=== PATIENT | male | born 1955 | race Caucasian/White ===

== ENCOUNTER 2016-08-26 06:56 | Inpatient (IN) | payer BC ==
[~2016-08-26] VITALS: Ht 172.7 cm; Wt 113.4 kg
[~2016-08-26 06:56] MED LIST: ALBU17IN INH; FAMO40TA3 PO; LISI20TA PO; SPIR25TA2 PO
[2016-08-26] MEDS ORDERED: LR 1,000 ML IV SCH ×3 (07:15→13:45)
[2016-08-26] MEDS ORDERED: AMPICILLIN SOD/SULBACTAM SOD 3 GM in D5W MINI-BAG PLUS 100 ML IV ONE (07:15)
[2016-08-26] MEDS ORDERED: MIDAZOLAM INJ 2 MG/2 ML VIAL (J2250) As Ordered ONE (07:57)
[2016-08-26] MEDS ORDERED: LIDOCAINE 2% INJ 100 MG/5 ML SDV (FOR ANES.) As Ordered ONE (07:58)
[2016-08-26] MEDS ORDERED: fentaNYL 250 MCG/5 ML INJECTION (J3010) As Ordered ONE (07:58)
[2016-08-26] MEDS ORDERED: PROPOFOL 200 MG/20 ML VIAL As Ordered ONE (08:00)
[2016-08-26] MEDS ORDERED: ROCURONIUM BROMIDE 50 MG/5 ML VIAL As Ordered ONE (08:01)
[2016-08-26] MEDS ORDERED: CONRAY-60 60% 50ML VIAL (Q9961) As Ordered ONE (08:22)
[2016-08-26] MEDS ORDERED: BUPIVACAINE HCL 0.25% 30 ML VIAL As Ordered ONE (08:23)
[2016-08-26] MEDS ORDERED: LIDOCAINE 1% SDV INJ 30 ML VIAL As Ordered ONE (08:23)
[2016-08-26] MEDS ORDERED: dexameTHASONE 4 MG/ML 1ML VIAL (J1100) As Ordered ONE (08:58)
[2016-08-26] MEDS ORDERED: ONDANSETRON 4MG/2ML VIAL (J2405) As Ordered ONE (09:22)
[2016-08-26] MEDS ORDERED: NEOSTIGMINE 1MG/ML 5 ML SYRINGE (J2710) As Ordered ONE (09:22)
[2016-08-26] MEDS ORDERED: GLYCOPYRROLATE INJ 0.2 MG/ML 2 ML VIAL As Ordered ONE (09:22)
[2016-08-26] MEDS ORDERED: HYDROmorphone HCL 2 MG/ML 1ML VIAL (J1170) As Ordered ONE (10:39)
[2016-08-26] MEDS ORDERED: ceFAZolin 2 GM/D5W 50 ML IV BAG (J0690) As Ordered ONE (12:14)
[2016-08-26] MEDS ORDERED: UNASYN 1.5 GM VIAL As Ordered ONE (12:17)
[2016-08-26] MEDS ORDERED: ePHEDrine SULFATE 25 MG/5 ML(5MG/ML) SYRINGE As Ordered ONE (12:18)
[2016-08-26] MEDS ORDERED: ALBUTEROL 90 MCG/ACT 8GM HFA INHALER INH PRN (13:00)
[2016-08-26] MEDS ORDERED: ONDANSETRON 4MG/2ML VIAL (J2405) IV PRN ×2 (13:00→13:45)
[2016-08-26] MEDS ORDERED: ACETAMINOPHEN TAB 650MG DOSE (2X325MG) PO PRN (13:00)
[2016-08-26] MEDS ORDERED: KETOROLAC 30 MG/ML VIAL (J1885) IV PRN (13:00)
[2016-08-26] MEDS ORDERED: MORPHINE 4 MG/ML 1ML SYRINGE IV PRN (13:00)
[2016-08-26] MEDS ORDERED: fentaNYL 100 MCG/2 ML INJECTION (J3010) As Ordered ONE (13:27)
[2016-08-26] MEDS: fentaNYL 100 MCG/2 ML INJECTION (J3010) IV PRN ×4 (13:30→14:01)
[2016-08-26] MEDS ORDERED: HYDROmorphone HCL 1 MG/ML SYRINGE (J1170) As Ordered ONE (14:03)
[2016-08-26] MEDS ORDERED: HYDROmorphone HCL 1 MG/ML SYRINGE (J1170) IV PRN (14:30)
[2016-08-26 14:41] VITALS: BP 112/54
[2016-08-26 15:15] VITALS: BP 112/58
[2016-08-26] MEDS: NORCO, ANEXSIA 5/325MG TABLET (HYDROcodone/ACETAMINOPHEN) PO PRN ×2 (15:49→21:24)
[2016-08-26 16:15] VITALS: BP 114/58
[2016-08-26] MEDS: PANTOPRAZOLE 40MG INJ (PROTONIX) (C9113) IV SCH (16:31)
[2016-08-26] MEDS: ENOXAPARIN 40 MG/0.4 ML SYRINGE (J1650) SC SCH (16:32)
[2016-08-26] MEDS: LISINOPRIL 20 MG TAB PO SCH (16:32)
[2016-08-26] MEDS: hydroCHLOROthiazide 12.5 MG CAPSULE PO SCH (16:32)
[2016-08-26] MEDS: LR 1,000 ML IV SCH ×2 (16:33→21:23)
[2016-08-26] MEDS ORDERED: NORCO, ANEXSIA 5/325MG TABLET (HYDROcodone/ACETAMINOPHEN) PO PRN (16:45)
[2016-08-26 17:15] VITALS: BP 118/57
[2016-08-26] MEDS: AMPICILLIN SOD/SULBACTAM SOD 3 GM in D5W MINI-BAG PLUS 100 ML IV SCH (17:41)
[2016-08-26 18:15] VITALS: BP 116/61
[2016-08-26] MEDS: SENOKOT S TAB PO SCH (21:23)
[2016-08-26 22:00] VITALS: BP 105/54
[2016-08-27] MEDS: AMPICILLIN SOD/SULBACTAM SOD 3 GM in D5W MINI-BAG PLUS 100 ML IV SCH ×3 (00:16→12:19)
[2016-08-27 02:00] VITALS: BP 112/63
[2016-08-27] MEDS: LR 1,000 ML IV SCH (05:19)
[2016-08-27] MEDS: NORCO, ANEXSIA 5/325MG TABLET (HYDROcodone/ACETAMINOPHEN) PO PRN ×3 (05:42→18:33)
[2016-08-27 06:00] VITALS: BP 102/52
[2016-08-27 06:57] LABS: BASO % 0.2 % (0.0-1.0); EOS % 0.1 % (0.0-3.0); LARGE UNSTAINED CELL # 0.1 K/mm3 (0.0-0.4); LARGE UNSTAINED CELL % 0.8 % (0.0-4.0); LYMPH # 0.8 K/mm3 (1.5-4.5); LYMPH % 10.1 % (24.0-44.0); MEAN CORPUSCULAR HEMOGLOBIN 28.8 pg (27.0-33.0); MEAN CORPUSCULAR HGB CONC 32.8 g/dl (32.0-36.5); MEAN CORPUSCULAR VOLUME 87.9 fl (80.0-96.0); MONO # 0.3 K/mm3 (0.0-0.8); NEUTROPHILS # 6.3 K/mm3 (1.8-7.7); NEUTROPHILS % 84.9 % (36.0-66.0); PLATELET COUNT, AUTOMATED 159 k/mm3 (150-450); RED CELL DISTRIBUTION WIDTH 12.9 % (11.5-14.5); WHITE BLOOD COUNT 7.4 K/mm3 (4.0-10.0)
[2016-08-27 07:13] LABS: ALBUMIN 2.3 GM/DL (3.2-5.2); ALKALINE PHOSPHATASE 52 U/L (45-117); ALT/SGPT 51 U/L (12-78); ANION GAP 7 MEQ/L (8-16); AST/SGOT 39 U/L (15-37); BLOOD UREA NITROGEN 17 MG/DL (7-18); CALCIUM LEVEL 8.4 MG/DL (8.8-10.2); CARBON DIOXIDE LEVEL 30 MEQ/L (21-32); CHLORIDE LEVEL 104 MEQ/L (98-107); CREATININE FOR GFR 1.17 MG/DL (0.70-1.30); GLOMERULAR FILTRATION RATE > 60.0 (>49); GLUCOSE, FASTING 126 MG/DL (80-110); SODIUM LEVEL 141 MEQ/L (136-145); TOTAL PROTEIN 5.6 GM/DL (6.4-8.2)
[2016-08-27] MEDS: SENOKOT S TAB PO SCH ×2 (09:47→21:38)
[2016-08-27] MEDS: hydroCHLOROthiazide 12.5 MG CAPSULE PO SCH (09:48)
[2016-08-27] MEDS: ENOXAPARIN 40 MG/0.4 ML SYRINGE (J1650) SC SCH (09:48)
[2016-08-27] MEDS: LISINOPRIL 20 MG TAB PO SCH (09:48)
[2016-08-27] MEDS: PANTOPRAZOLE 40MG INJ (PROTONIX) (C9113) IV SCH (09:49)
[2016-08-27 22:00] VITALS: BP 106/55
[2016-08-28] MEDS: NORCO, ANEXSIA 5/325MG TABLET (HYDROcodone/ACETAMINOPHEN) PO PRN ×4 (00:54→21:55)
[2016-08-28 06:00] VITALS: BP 120/70
[2016-08-28 07:12] LABS: BASO % 0.3 % (0.0-1.0); EOS # 0.1 K/mm3 (0.0-0.50); LARGE UNSTAINED CELL # 0.1 K/mm3 (0.0-0.4); LARGE UNSTAINED CELL % 0.9 % (0.0-4.0); LYMPH # 0.8 K/mm3 (1.5-4.5); LYMPH % 13.4 % (24.0-44.0); MEAN CORPUSCULAR HEMOGLOBIN 29.3 pg (27.0-33.0); MEAN CORPUSCULAR HGB CONC 32.9 g/dl (32.0-36.5); MEAN CORPUSCULAR VOLUME 89.1 fl (80.0-96.0); MONO # 0.3 K/mm3 (0.0-0.8); NEUTROPHILS # 4.5 K/mm3 (1.8-7.7); NEUTROPHILS % 79.3 % (36.0-66.0); PLATELET COUNT, AUTOMATED 159 k/mm3 (150-450); RED CELL DISTRIBUTION WIDTH 13.2 % (11.5-14.5); WHITE BLOOD COUNT 5.6 K/mm3 (4.0-10.0)
[2016-08-28 07:21] LABS: ALBUMIN 2.4 GM/DL (3.2-5.2); ALBUMIN/GLOBULIN RATIO 0.69 (1.00-1.93); ALKALINE PHOSPHATASE 55 U/L (45-117); ALT/SGPT 38 U/L (12-78); ANION GAP 5 MEQ/L (8-16); AST/SGOT 20 U/L (15-37); BILIRUBIN,TOTAL 0.9 MG/DL (0.2-1.0); BLOOD UREA NITROGEN 15 MG/DL (7-18); CALCIUM LEVEL 8.4 MG/DL (8.8-10.2); CARBON DIOXIDE LEVEL 31 MEQ/L (21-32); CHLORIDE LEVEL 105 MEQ/L (98-107); CREATININE FOR GFR 1.02 MG/DL (0.70-1.30); GLOMERULAR FILTRATION RATE > 60.0 (>49); GLUCOSE, FASTING 101 MG/DL (80-110); POTASSIUM SERUM 3.5 MEQ/L (3.5-5.1); SODIUM LEVEL 141 MEQ/L (136-145); TOTAL PROTEIN 5.9 GM/DL (6.4-8.2)
[2016-08-28] MEDS: hydroCHLOROthiazide 12.5 MG CAPSULE PO SCH (08:59)
[2016-08-28] MEDS: PANTOPRAZOLE 40MG TAB (PROTONIX) PO SCH (08:59)
[2016-08-28] MEDS: LISINOPRIL 20 MG TAB PO SCH (08:59)
[2016-08-28] MEDS: SENOKOT S TAB PO SCH ×2 (08:59→20:09)
[2016-08-28] MEDS: ENOXAPARIN 40 MG/0.4 ML SYRINGE (J1650) SC SCH (09:00)
--- NOTE | 2016-08-28 13:12 | RO ---
DATE OF PROCEDURE: 08/26/2016 PREOPERATIVE DIAGNOSIS: 1. History of acute cholecystitis. 2. Cholelithiasis. POSTOPERATIVE DIAGNOSIS: 1. Chronic cholecystitis. 2. Cholecystoduodenal fistula. 3. Small injury to common hepatic duct at the junction with the cystic duct with primary repair. PROCEDURE PERFORMED: 1. Laparoscopic cholecystectomy converted to open cholecystectomy. 2. Takedown of cholecystoduodenal fistula with repair of the duodenal opening. 3. Small injury to the common hepatic duct with primary suture repair. SURGEON: Ramírez Leslie MD ASSISTANTS: 1. Dr. Ledbetter 2. Dr. Lundberg 3. Nubia Bermudez, MS-III ANESTHESIA: General anesthesia. ESTIMATED BLOOD LOSS: 100 mL. COMPLICATIONS: A small leak noted at the junction of the cystic duct and common hepatic duct which was repaired with #3-0 PDS suture. DRAINS PLACED: 19 Jalen drain placed behind the common bile duct coming off onto the patient's right side and another 19 Jalen drain coming around behind the duodenal sweep coming off the patient's umbilical port site. PROCEDURE NOTE: Mr. Coley is 61-year-old gentleman who back in July while in [place] for vacation had apparently a bout of acute cholecystitis, was kept overnight in the hospital and improved and was subsequently sent home. I saw him in the clinic and was advised cholecystectomy. He presents today for said procedure. He has been relatively asymptomatic since that time. After receiving Unasyn as a preoperative antibiotic the patient was brought to the operating room and laid supine on the table. Compression boots were placed on his lower extremities for deep vein thrombosis (DVT) prophylaxis. General endotracheal anesthesia was started without any complication. The abdomen was prepped and draped in usual sterile fashion. After a surgical time out we began our surgery. Entry into the abdomen done with an incision superior to the umbilicus. This was deepened to the anterior fascia. A Veress needle inserted in a controlled fashion. CO2 insufflation started to a pressure of 15 mmHg. Using the same incision a 5 mm Visiport was placed under direct vision of the laparoscope. The insertion site was checked for injury and none was found. He was then placed in a reverse Trendelenburg position and the right side tilted up to further expose the gallbladder. Under direct vision, the other working ports were placed, an 11 mm epigastric port and two 5 mm ports over the right subcostal line. On entering the abdomen, the area of the gallbladder was mainly covered with omentum. The gallbladder itself was not visible. We started by working around the omental adhesions, freeing this up from the edge of the liver, slowly exposing the fundus of the gallbladder. This was noted to be quite hardened and thickened with a thick fibrotic rind, which was hard to grab. We were able to get around anteriorly, but noted the stomach tethered up onto the underside of the gallbladder wall and thickly adhered to the area. We were not able to detach the piece of bowel. I came around medially to try to free up and get a window surrounding this area. We were able to only partially come around this as the stomach itself is a precluding further dissection plus the gallbladder itself was quite difficult to manipulate secondary to the degree of distension and chronic fibrotic thickening, appearing as a thick rind of tissue. I tried aspirating the contents of the gallbladder and thought we went in through the fundus the gallbladder, I was then able to aspirate anything. I also tried to take the gallbladder fundus down, which again was favored to be difficult. The posterior wall of the gallbladder itself appears to be ischemic and thinned out. We entered into the gallbladder through the fundus and actually got a small amount of purulent material, but there is a large, about 3 cm stone that is mainly the contents of the gallbladder that we saw. We tried to continue performing this laparoscopically, trying to slowly get around the gallbladder and also tried to peel off what appears to be the pylorus, or slightly just beyond the pylorus, that is adhered to the gallbladder wall, but was not able to do so. So, what I did was open up the anterior wall of the gallbladder enough that I could be dislodge the stone. After dislodging the stone, I tried to view the underside of the gallbladder that is attached to the duodenum to verify if there was a fistula and this portion of the gallbladder has a lot of inflammatory exudate and this is highly suspicious for a fistula. At this point, I decided to continue the surgery by an open approach. After removing all the laparoscopic instruments, a generous subcostal incision was created tracing the line created by the ports. This was deepened through subcutaneous tissue. The fascia was opened up in layers. After entering into the abdomen, a self-retaining Bookwalter retractor was placed to further expose the gallbladder. I used my hand to palpate around and was able to come around the stomach and duodenum and get into a plane behind this area. I further opened up the gallbladder wall while protecting the stomach and duodenum. After entering this, I was able to circumferentially get around this area and dissect behind the gallbladder. I then disconnected this portion of the gallbladder to deliver this portion of bowel in place. After doing so, we were fairly left with only a small amount of gallbladder left, with most of the gallbladder wall taken in pieces. We dissected around the cystic duct, which was fairly adhered, but I could still make up the planes around it. After full dissection, was able to free this up but noted a small tear at the junction of the cystic duct and common hepatic duct. I initially placed a couple of sutures of #3-0 PDS, but this would not control the leakage. There was a good amount of fibrotic tissue at the area so I dissected the fibrotic tissue away to further expose the wall of the common bile duct. At this point, I considered enlarging the incision and placing a T tube, but due to its position at the junction, I would have to create a bigger hole to control this. I dissected free the fibrotic peritoneum covering this area and then placed four sutures to close the hole, which seemed to hold this in place. The cystic duct itself was controlled by tying this off with #2-0 Vicryl. At this point, we left this area packed and we looked at the duodenal opening of the cholecystoduodenal fistula. We trimmed the gallbladder and the fibrotic tissues around this area and a fairly good sized hole that would accommodate the suction was noted. We debrided this area to healthy tissue. I used Allis forceps to control the opening and used TA 30 with a green load to close the incision. This seems to hold this in place, while not narrowing the opening of the duodenum. At this point we irrigated the abdomen. We again checked back on our repair and no further biliary leakage was noted. I have placed TISSEEL fibrin glue over the area and left the drain underneath this. I left a second drain coming around the duodenal sweep to monitor our duodenal closure. We then closed the abdomen in layers using #1 PDS. The skin incision was closed with mary lou. The patient was promptly awakened, extubated, and brought to the recovery room stable.
[2016-08-28 14:00] VITALS: BP 144/76
[2016-08-28] MEDS ORDERED: CALCIUM CARBONATE 500 MG CHEW U/D PO PRN (17:30)
[2016-08-28 22:00] VITALS: BP 127/67
[2016-08-29 06:00] VITALS: BP 127/66
[2016-08-29 06:58] LABS: BASO % 0.4 % (0.0-1.0); EOS # 0.1 K/mm3 (0.0-0.50); EOS % 2.3 % (0.0-3.0); LARGE UNSTAINED CELL # 0.1 K/mm3 (0.0-0.4); LARGE UNSTAINED CELL % 1.7 % (0.0-4.0); LYMPH # 0.8 K/mm3 (1.5-4.5); LYMPH % 15.5 % (24.0-44.0); MEAN CORPUSCULAR HEMOGLOBIN 29.4 pg (27.0-33.0); MEAN CORPUSCULAR HGB CONC 33.7 g/dl (32.0-36.5); MEAN CORPUSCULAR VOLUME 87.3 fl (80.0-96.0); MONO # 0.3 K/mm3 (0.0-0.8); MONO % 6.3 % (0.0-5.0); NEUTROPHILS % 73.8 % (36.0-66.0); PLATELET COUNT, AUTOMATED 169 k/mm3 (150-450); RED CELL DISTRIBUTION WIDTH 12.8 % (11.5-14.5); WHITE BLOOD COUNT 5.4 K/mm3 (4.0-10.0)
[2016-08-29 07:13] LABS: ALBUMIN 2.3 GM/DL (3.2-5.2); ALBUMIN/GLOBULIN RATIO 0.59 (1.00-1.93); ALKALINE PHOSPHATASE 52 U/L (45-117); ALT/SGPT 29 U/L (12-78); ANION GAP 8 MEQ/L (8-16); AST/SGOT 16 U/L (15-37); BILIRUBIN,TOTAL 1.1 MG/DL (0.2-1.0); BLOOD UREA NITROGEN 13 MG/DL (7-18); CALCIUM LEVEL 8.5 MG/DL (8.8-10.2); CARBON DIOXIDE LEVEL 31 MEQ/L (21-32); CHLORIDE LEVEL 102 MEQ/L (98-107); CREATININE FOR GFR 1.08 MG/DL (0.70-1.30); GLOMERULAR FILTRATION RATE > 60.0 (>49); GLUCOSE, FASTING 95 MG/DL (80-110); POTASSIUM SERUM 3.5 MEQ/L (3.5-5.1); SODIUM LEVEL 141 MEQ/L (136-145); TOTAL PROTEIN 6.2 GM/DL (6.4-8.2)
[2016-08-29] MEDS: NORCO, ANEXSIA 5/325MG TABLET (HYDROcodone/ACETAMINOPHEN) PO PRN (07:48)
[2016-08-29 07:52] VITALS: BP 124/64
[2016-08-29] MEDS: PANTOPRAZOLE 40MG TAB (PROTONIX) PO SCH (07:52)
[2016-08-29] MEDS: SENOKOT S TAB PO SCH (07:52)
[2016-08-29] MEDS: LISINOPRIL 20 MG TAB PO SCH (07:52)
[2016-08-29] MEDS: hydroCHLOROthiazide 12.5 MG CAPSULE PO SCH (07:53)
[2016-08-29] MEDS: ENOXAPARIN 40 MG/0.4 ML SYRINGE (J1650) SC SCH (07:53)
[2016-08-29] MEDS ORDERED: NORCOTAB PO (09:09)
== END 2016-08-29 10:10 | disposition home or self-care (01) | DRG 261 ==
LOC: M SDC 06:56 → M ED INP 12:55 → M MS5PR 14:46
PROVIDERS: ADMIT Surgery; ATTEND Surgery
PROC: 0DQ90ZZ Repair Duodenum, Open Approach (ICD-10-PCS; 2016-08-26)
PROC: 0FQ90ZZ Repair Common Bile Duct, Open Approach (ICD-10-PCS; 2016-08-26)
PROC: 0FT40ZZ Resection of Gallbladder, Open Approach (ICD-10-PCS; principal; 2016-08-26 08:15)
DX: K80.64 Calculus of gallbladder and bile duct with chronic cholecystitis without obstruction (principal); K82.3 Fistula of gallbladder; E66.01 Morbid (severe) obesity due to excess calories; Y73.3 Surgical instruments, materials and gastroenterology and urology devices (including sutures) associated with adverse incidents; K66.0 Peritoneal adhesions (postprocedural) (postinfection); I10 Essential (primary) hypertension; Z68.39 Body mass index [BMI] 39.0-39.9, adult; Z79.899 Other long term (current) drug therapy; K91.71 Accidental puncture and laceration of a digestive system organ or structure during a digestive system procedure

== ENCOUNTER → 2016-09-21 | Outpatient (CLI) | payer BC ==
[~2016-09-21] MED LIST changes: +NORCOTAB PO
[2016-09-21 09:40] LABS: ALBUMIN 3.1 GM/DL (3.2-5.2); ALBUMIN/GLOBULIN RATIO 0.86 (1.00-1.93); BILIRUBIN,DIRECT 0.2 MG/DL (0.0-0.2); BILIRUBIN,TOTAL 0.9 MG/DL (0.2-1.0); TOTAL PROTEIN 6.7 GM/DL (6.4-8.2)
== END ==
LOC: M WUC 08:12
PROVIDERS: ATTEND Surgery
DX: K80.18 Calculus of gallbladder with other cholecystitis without obstruction (principal)

== ENCOUNTER → 2016-11-25 | Outpatient (REF) | payer BC ==
[2016-11-25 13:23] LABS: ALBUMIN 3.3 GM/DL (3.2-5.2); ALBUMIN/GLOBULIN RATIO 0.97 (1.00-1.93); ALKALINE PHOSPHATASE 78 U/L (45-117); ALT/SGPT 18 U/L (12-78); ANION GAP 7 MEQ/L (8-16); AST/SGOT 12 U/L (15-37); BILIRUBIN,TOTAL 0.7 MG/DL (0.2-1.0); BLOOD UREA NITROGEN 18 MG/DL (7-18); CALCIUM LEVEL 8.6 MG/DL (8.8-10.2); CARBON DIOXIDE LEVEL 31 MEQ/L (21-32); CHLORIDE LEVEL 101 MEQ/L (98-107); CHOLESTEROL LEVEL 198 MG/DL (<200); CREATININE FOR GFR 1.13 MG/DL (0.70-1.30); GLOMERULAR FILTRATION RATE > 60.0 (>49); GLUCOSE, FASTING 95 MG/DL (80-110); POTASSIUM SERUM 3.9 MEQ/L (3.5-5.1); SODIUM LEVEL 139 MEQ/L (136-145); TOTAL PROTEIN 6.7 GM/DL (6.4-8.2); TRIGLYCERIDES LEVEL 103 MG/DL (<150)
== END ==
LOC: M LABDRAWC 11:46
PROVIDERS: ATTEND Emergency Medicine
DX: I10 Essential (primary) hypertension (principal); E78.2 Mixed hyperlipidemia; R73.01 Impaired fasting glucose

== ENCOUNTER → 2017-01-12 | Outpatient (CLI) | payer BC ==
[~2017-01-12] MED LIST changes: +CONRAY-43 43% 50ML VIAL (Q9960) As Ordered ONE; +LIDOCAINE 1% MDV 20ML VIAL As Ordered ONE; +methylPREDNISolone SUSP 40 MG/ML (DEPO-medrol) VIAL (J1030) As Ordered ONE
--- NOTE | 2017-01-12 17:32 | REP ---
LEFT HIP INJECTION: The procedure was performed under the direct supervision of Dr. Arellano. The benefits and risks including but not limited to pain, infection, bleeding, and anaphylaxis were explained to the patient and informed consent was obtained. . The left femoral neck was localized using fluoroscopic guidance. The skin was prepped and draped in a sterile fashion. 1% Lidocaine was used as a local anesthetic. Using fluoroscopic guidance a 22-gauge spinal needle was inserted and then advanced to the femoral neck. 0.5 mL of Conray-43 was injected to verify placement. 5 mL of a solution containing 3 mL of 1% Lidocaine and 2 mL of Kenalog 40 mg was injected. The needle was then removed. The patient tolerated the procedure well and there were no immediate complications. 2 second of fluoroscopic time was utilized for this procedure. Reviewed by BEAU Elkins 01/12/2017 05:46 PEdited and Signed by Zach Arellano MD 01/12/2017 06:50 P
== END ==
LOC: M RADPRO 10:01
PROVIDERS: ATTEND Orthopaedic Surgery
DX: M16.12 Unilateral primary osteoarthritis, left hip (principal)
CPT/HCPCS: 20611; 77002; J1030; Q9960

== ENCOUNTER → 2017-05-01 | Outpatient (CLI) | payer BC ==
[~2017-05-01] MED LIST changes: -CONRAY-43 43% 50ML VIAL (Q9960) As Ordered ONE; +COUM1TAB17 PO; -LIDOCAINE 1% MDV 20ML VIAL As Ordered ONE; -methylPREDNISolone SUSP 40 MG/ML (DEPO-medrol) VIAL (J1030) As Ordered ONE
[2017-05-01 10:37] LABS: MEAN CORPUSCULAR HEMOGLOBIN 29.9 pg (27.0-33.0); MEAN CORPUSCULAR HGB CONC 34.6 g/dl (32.0-36.5); MEAN CORPUSCULAR VOLUME 86.5 fl (80.0-96.0); PLATELET COUNT, AUTOMATED 201 10^3/uL (150-450); RED CELL DISTRIBUTION WIDTH 12.8 % (11.5-14.5)
[2017-05-01 10:47] LABS: INR 0.96
--- NOTE | 2017-05-01 11:04 | REP ---
Chest x-ray: Two views. History: Hypertension, asthma. Left hip arthritis. Findings: The lungs are well inflated and clear. The pleural angles are sharp. Heart size is normal. Pulmonary vasculature is not increased. There are mild degenerative changes in the thoracic spine. Impression: No active disease. Signed by Tonio Delgadillo MD 05/01/2017 01:11 P
[2017-05-01 11:13] LABS: ALBUMIN 3.6 GM/DL (3.2-5.2); ALBUMIN/GLOBULIN RATIO 1.13 (1.00-1.93); ALKALINE PHOSPHATASE 69 U/L (45-117); ALT/SGPT 20 U/L (12-78); ANION GAP 6 MEQ/L (8-16); AST/SGOT 16 U/L (7-37); BILIRUBIN,TOTAL 0.8 MG/DL (0.2-1.0); BLOOD UREA NITROGEN 21 MG/DL (7-18); CALCIUM LEVEL 8.8 MG/DL (8.8-10.2); CARBON DIOXIDE LEVEL 32 MEQ/L (21-32); CHLORIDE LEVEL 101 MEQ/L (98-107); CREATININE FOR GFR 1.15 MG/DL (0.70-1.30); GLOMERULAR FILTRATION RATE > 60.0 (>49); GLUCOSE, FASTING 101 MG/DL (80-110); POTASSIUM SERUM 3.9 MEQ/L (3.5-5.1); SODIUM LEVEL 139 MEQ/L (136-145); TOTAL PROTEIN 6.8 GM/DL (6.4-8.2)
[2017-05-01 11:39] LABS: ERYTHROCYTE SEDIMENTATION RATE 18 mm/hr (0-20)
--- NOTE | 2017-05-01 21:13 | ECGEPIP ---
Stationary ECG Study [facility] Test Date: 2017-05-01 Pat Name: LATISHA LÓPEZ Department: Room: - Gender: M Licensed Mortician: MOMO : [id number] Requested By: Rui Adhikari Order Number: [id number] Reading MD: Mian Sharpe Measurements Intervals [place] Rate: 66 P: 20 DC: 126 QRS: 26 QRSD: 102 T: 13 QT: 388 QTc: 408 Interpretive Statements Normal sinus rhythm Low QRS complex voltage in the limb leads Incomplete right bundle branch block Nonspecific T wave abnormality Comparison tracing not on file Electronically Signed On 05-01-2017 21:13:36 EST by Mian Sharpe
--- NOTE | 2017-05-03 17:34 | HPE ---
DATE OF PLANNED ADMISSION: 05/09/2017 HISTORY OF PRESENT ILLNESS: This is a pleasant 61-year-old male with continuing symptomatic left hip osteoarthritis. The patient has consented for a left total hip arthroplasty per Dr. Rui Salomon. Medical optimization per Dr. Lofton and x-rays are consistent with advanced osteoarthritis. ALLERGIES: None known to drugs. CURRENT MEDICATIONS: List includes: - meloxicam 15 mg - Lisinopril - hydrochlorothiazide 20 - 12.5 mg - spironolactone 25 mg - famotidine 40 mg 4/4 mL - Ventolin HFA 108 (90 base (mcg / CT). MEDICAL PROBLEM LIST: Includes: Symptomatic left hip osteoarthritis. Hypertension. PAST SURGICAL HISTORY: No past procedures. SOCIAL HISTORY: Denies smoking, socially drinks alcohol. Denies illicit drugs. FAMILY HISTORY: Noncontributory. REVIEW OF SYSTEMS: Denies chest pain, shortness of breath, dyspnea on exertion, fever, chills, malaise, upper respiratory or urinary tract symptoms. Consent was reviewed and signed on 04/13/2017. PHYSICAL EXAMINATION: Blood pressure 136/94, temperature 98.3, height 67, weight 268, BMI 42.0. This is a pleasant obese male in no acute distress. He is alert and oriented times three. Mood and affect are appropriate. His lower extremities are benign, noninfectious looking, normal skin. Left hip range of motion is limited and irritable through internal and external range of motion. Bowels soft, nontender times four. Chest rises symmetrically, regular rate and rhythm. Lungs: Clear to auscultation. Neck: Supple. Negative jugular venous distention (JVD) or bruits. Normocephalic. Chest x-ray: No active disease. Read by Dr. Delgadillo via [facility]. EKG: Normal sinus rhythm. Read by Dr. Sharpe. LABS: Labs were reviewed. Ketone urine auto: trace. Blood urine 1+, RBC urine auto: 7. BUN 21, anion gap 6. Urine culture: No growth. I did not see a nasal sinus culture. IMPRESSION: 1. Symptomatic left hip osteoarthritis. 2. The patient consented for left total hip arthroplasty per Dr. Rui Salomon. 3. Medical optimization per Dr. Lofton, which I am awaiting his note. 4. director call center sales to OR, 2 grams IV Kefzol in OR. 5. Sequential compression devices (SCDs) and thromboembolism deterrents (TEDs) in OR.
== END ==
LOC: M ADMPAT 09:20
PROVIDERS: ATTEND Orthopaedic Surgery
DX: M16.12 Unilateral primary osteoarthritis, left hip (principal); Z01.818 Encounter for other preprocedural examination

== ENCOUNTER 2017-05-09 06:35 | Inpatient (IN) | payer BC ==
[2017-05-01 09:47] VITALS: BP 148/90
[2017-05-09] VITALS (7 sets, daily range): BP systolic 108–130; BP diastolic 65–86
[~2017-05-09] VITALS: Ht 172.7 cm; Wt 125.3 kg
[~2017-05-09 06:35] MED LIST changes: -COUM1TAB17 PO
[2017-05-09] MEDS ORDERED: PERCOCET 5MG/325MG TAB PO ONE (06:45)
[2017-05-09] MEDS ORDERED: PREGABALIN 75 MG CAP(LYRICA) PO ONE (06:45)
[2017-05-09] MEDS ORDERED: CelecoXIB 400 MG CAP PO ONE (06:45)
[2017-05-09] MEDS ORDERED: LIDOCAINE 1% MDV 20ML VIAL SQ PRN (06:45)
[2017-05-09] MEDS ORDERED: LR 1,000 ML IV ONE (06:45)
[2017-05-09] MEDS ORDERED: COUM1TAB17 PO (07:36)
[2017-05-09] MEDS ORDERED: BUPIVACAINE/EPIN 0.25% 30 ML VIAL As Ordered ONE (08:03)
[2017-05-09] MEDS ORDERED: TRANEXAMIC ACID 100 MG/ML 10ML VIAL As Ordered ONE (08:04)
[2017-05-09] MEDS ORDERED: ceFAZolin 1GM INJ (J0690) As Ordered ONE (08:04)
[2017-05-09] MEDS ORDERED: EPINEPHrine INJ 1 MG/ML 1ML AMP As Ordered ONE (08:04)
[2017-05-09] MEDS ORDERED: PROPOFOL 200 MG/20 ML VIAL As Ordered ONE ×2 (08:10→10:09)
[2017-05-09] MEDS ORDERED: LIDOCAINE 2% INJ 100 MG/5 ML SDV (FOR ANES.) As Ordered ONE (08:10)
[2017-05-09] MEDS ORDERED: fentaNYL 100 MCG/2 ML INJECTION (J3010) As Ordered ONE (08:11)
[2017-05-09] MEDS ORDERED: MIDAZOLAM INJ 2 MG/2 ML VIAL (J2250) As Ordered ONE (08:11)
[2017-05-09] MEDS ORDERED: FAMOTIDINE 20 MG TAB PO SCH ×2 (09:00→21:00)
[2017-05-09] MEDS ORDERED: ePHEDrine SULFATE 25 MG/5 ML(5MG/ML) SYRINGE As Ordered ONE ×3 (09:01→10:05)
[2017-05-09] MEDS ORDERED: PHENYLephrine HCL 500 MCG/5 ML (100MCG/ML) SYRINGE (J2370) As Ordered ONE (09:25)
[2017-05-09] MEDS ORDERED: GLYCOPYRROLATE INJ 0.2 MG/ML 2 ML VIAL As Ordered ONE (09:58)
[2017-05-09] MEDS ORDERED: ONDANSETRON 4MG/2ML VIAL (J2405) As Ordered ONE (10:33)
[2017-05-09] MEDS ORDERED: METOCLOPRAMIDE INJ 10MG/2ML VIAL (J2765) As Ordered ONE (10:33)
[2017-05-09] MEDS ORDERED: BUPIVACAINE LIPOSOME/PF 1.3% 20 ML VIAL (13.3MG/ML)(EXPAREL) As Ordered ONE (10:41)
[2017-05-09] MEDS ORDERED: BUPIVACAINE HCL 0.5% 10 ML VIAL As Ordered ONE (10:41)
[2017-05-09] MEDS ORDERED: FLEET ENEMA PR PRN (11:45)
[2017-05-09] MEDS ORDERED: ONDANSETRON 4MG/2ML VIAL (J2405) IV PRN (11:45)
[2017-05-09] MEDS ORDERED: MORPHINE 10 MG/ML 1ML VIAL IV PRN (11:45)
[2017-05-09] MEDS ORDERED: fentaNYL 100 MCG/2 ML INJECTION (J3010) IV PRN (11:45)
[2017-05-09] MEDS ORDERED: PERCOCET 5MG/325MG TAB PO PRN ×2 (11:45)
[2017-05-09] MEDS ORDERED: METOCLOPRAMIDE INJ 10MG/2ML VIAL (J2765) IV PRN (11:45)
[2017-05-09] MEDS ORDERED: PROMETHAZINE INJ 25 MG/ML VIAL (J2550) IV PRN (11:45)
[2017-05-09] MEDS ORDERED: ACETAMINOPHEN TAB 650MG DOSE (2X325MG) PO PRN (11:45)
[2017-05-09] MEDS ORDERED: LR 1,000 ML IV SCH (11:45)
[2017-05-09] MEDS ORDERED: HYDROmorphone HCL 1 MG/ML SYRINGE (J1170) IV PRN ×2 (12:00)
[2017-05-09] MEDS ORDERED: ALBUTEROL 90 MCG/ACT 8GM HFA INHALER INH PRN (12:00)
[2017-05-09] MEDS: D5W/LR 1,000 ML IV SCH ×2 (13:19→22:00)
[2017-05-09] MEDS: PERCOCET 5MG/325MG TAB PO PRN ×2 (14:12→20:24)
[2017-05-09] MEDS ORDERED: WARFARIN SOD 2.5 MG TAB PO ONE (17:00)
[2017-05-09] MEDS ORDERED: WARFARIN SOD 1 MG TAB PO ONE (17:00)
--- NOTE | 2017-05-09 17:39 | CR.PDOC ---
[facility] Consultation Consultation DATE OF CONSULTATION: 05/09/17 REFERRING PROVIDER: Waldo Verdugo M.D. ATTENDING PHYSICIAN: Dr. Salomon REASON FOR CONSULTATION/CHIEF COMPLAINT: . Medical management HISTORY OF PRESENT ILLNESS: . 61-year-old male with past medical history of hypertension, GERD, asthma, and osteoporosis was admitted to [facility] for left hip arthroplasty under the orthopedic surgery service. The hospitalist service has been consulted for management of the patient's medical comorbidities. At this time, the patient states that his pain is reasonably controlled under the current regimen, and denies any acute complaints of fevers, chills, chest pain, palpitations, abdominal pain, or any nausea/vomiting/diarrhea. ALLERGIES: Please see below. HOME MEDICATIONS: Please see below. PAST MEDICAL HISTORY: As noted above. FAMILY HISTORY: Noncontributory SOCIAL HISTORY: Occasionally drinks alcohol, denies tobacco or illicit drug use. Is functionally independent at baseline. REVIEW OF SYSTEMS: 10 point review of systems negative unless otherwise specified in HPI. PHYSICAL EXAMINATION: VITAL SIGNS: Please see below. GENERAL APPEARANCE: . Awake, alert, in no acute distress HEENT: . Normocephalic, atraumatic RESPIRATORY: . Clear to auscultation bilaterally CARDIOVASCULAR: . Normal rate, normal S1, S2 ABDOMEN: . Soft, nontender, nondistended EXTREMITIES: . Surgical scar noted on left hip. Clean/drying/intact. Patient neurovascularly intact distally on the left lower extremity LABORATORY DATA: Please see below. ASSESSMENT/PLAN: S/p Left Hip Arthroplasty DVT prophylaxis, pain management as per primary service Hypertension, stable Continue on hydrochlorothiazide, lisinopril, spironolactone GERD Continue Pepcid Asthma, stable Continue albuterol when necessary DVT prophylaxis As per primary service The patient will continue to be followed by Dr. Jurado in consult starting at 7 AM. Vital Signs/I&O Vital Signs Date Time Temp Pulse Resp B/P (MAP) Pulse Ox O2 Delivery O2 Flow Rate FiO2 05/09/17 16:45 97.5 70 9 122/75 (91) 94 Room Air 05/09/17 14:00 2.0 I&O- Last 24 Hours up to 6 AM 05/10/17 06:00 Intake Total 3160 ml Output Total 550 ml Balance 2610 ml Allergies Coded Allergies: No Known Allergies (Unverified , 05/09/17) Home Medications Scheduled (Lisinopril/Hydrochlorothi 20-12.5 mg) 1 Tab Tab, 2 TAB PO DAILY, (Reported) Famotidine (Famotidine) 40 Mg Tab, 40 MG PO DAILY, (Reported) Spironolactone (Spironolactone) 25 Mg Tab, 12.5 MG PO DAILY, (Reported) Scheduled PRN Albuterol Sulfate (Ventolin Hfa) 200 Puff/8 Gm Aers, 2 PUFF INH PRN PRN for SHORTNESS OF BREATH, (Reported) Miscellaneous Medications Warfarin Sod (Coumadin) 5 Mg Tab, 5 MG PO, (Reported) WALDO VERDUGO MD May 09, 2017 17:39
[2017-05-10] MEDS: PERCOCET 5MG/325MG TAB PO PRN ×3 (01:35→11:42)
[2017-05-10 02:00] VITALS: BP 121/70
[2017-05-10 06:00] VITALS: BP 92/82
[2017-05-10 07:10] LABS: ANION GAP 4 MEQ/L (8-16); BLOOD UREA NITROGEN 14 MG/DL (7-18); CALCIUM LEVEL 8.5 MG/DL (8.8-10.2); CARBON DIOXIDE LEVEL 32 MEQ/L (21-32); CHLORIDE LEVEL 103 MEQ/L (98-107); CREATININE FOR GFR 1.05 MG/DL (0.70-1.30); GLOMERULAR FILTRATION RATE > 60.0 (>49); GLUCOSE, FASTING 116 MG/DL (80-110); MAGNESIUM LEVEL 1.7 MG/DL (1.8-2.4); POTASSIUM SERUM 4.1 MEQ/L (3.5-5.1); SODIUM LEVEL 139 MEQ/L (136-145)
--- NOTE | 2017-05-10 07:15 | RO ---
DATE OF PROCEDURE: 05/09/2017 PREOPERATIVE DIAGNOSIS: Left hip osteoarthritis. POSTOPERATIVE DIAGNOSIS: Left hip osteoarthritis. PROCEDURE PERFORMED: Left total hip replacement. SURGEON: Dr. Rui Salomon DIRECTOR CREDIT RISK: Angelo Prado PA-C ANESTHESIA: Spinal. ESTIMATED BLOOD LOSS: 400 mL, replaced with crystalloid. NO COMPLICATIONS: INDICATIONS: Progressive discomfort in the left hip and radiographic evidence of severe [id number] arthritic changes and deformity of the left hip. The patient has elected for surgery. CONSENT: Reviewed in detail including a bjorn discussion of the pathology involved, the procedure proposed, alternatives including doing nothing, and risks including not limited to, pain, failure, infection, bleeding, blood loss, incomplete relief of symptoms, dislocation, need for more surgery, blood clots, and other issues. The patient agreed to proceed with surgery. COMPONENTS USED: Include DePuy Oldham hip system size 5 high offset, femoral component size 8+, 8.5 neck length, 52 mm acetabular shell, size 36 mm AltrX acetabular polyethylene apex hole eliminator, and a 36 mm, again, +8.5 femoral head. OPERATIVE COURSE: Identified in holding area, site and side verified, brought to the operating room. Spinal anesthesia was administered. He was positioned in the lateral decubitus position on the Alpine frame for exposure of the left hip for arthroplasty. This approach is a modified Hardinge approach. Once the patient was positioned in the usual fashion and I and the machine precision etcher were comfortable with the patient's positioning, he was then sterilely prepped and draped in usual fashion for exposure. The left hip incision was outlined with a marking pen. It was infiltrated with 0.25% Marcaine with epinephrine and the incision was then made with a 10 blade knife and developed down through skin and subcuticular tissues to the lateral fascia. The lateral fascia was split parallel to its fibers and the split was continued using the Biswas scissor exposing the abductor mechanism. A rent was created at the anterior aspect of the abductor mechanism and the dissection continued along the femoral neck splitting the minimus and the hip capsule and releasing the reflected head of the vastus. Next, a cuff of tissue was left in the greater trochanter as the anterior aspect of the abductor was reflected anteriorly. It was tagged with a stay suture for later repair. The dissection continued inferiorly, splitting the vastus lateralis and splitting the inferior hip capsule so that the lesser trochanter could be palpated. A bone hook was then utilized to dislocate the hip while Mr. Soriano applied traction and rotation and placed the hip into the bag dislocating the hip. Next, trochanteric retractor was installed and the appropriate Jules retractors. I then opened the femoral canal using the canal opening reamer, followed by the canal finding reamer, followed by the lateralizing reamer, followed by serial reamers through a size 5, which seemed to fit appropriately. Next, the neck cut template was installed and I made the neck cut using the oscillating saw. Dr. Soriano assisted with exposure. The femoral head was removed. I palpated the lesser trochanter t verify appropriate neck cut and it was adjusted. Next, once this was accomplished, we removed the hip out from the sterile bag and exposed the acetabulum with the anterior and posterior retractors. I removed acetabular labrum with the hot knife and cleared the acetabular fossa using the hot knife. The acetabulum was significantly lateralized with a very deep acetabular fossa. Next, once the exposure of the acetabulum was adequate, Martell Matthewmagalis retained the anterior and posterior retractors, while I utilized hemispherical reamers to ream to the floor of the acetabulum. We then reamed up through a size 51 mm reamer and I then placed a trial 51/52 acetabular liner. It fit securely. The acetabulum was significantly deepened through this procedure. Next, irrigation was accomplished. The non trial acetabulum was implanted using the targeting device. Next, once this was in the floor the acetabulum, I did place a 36 mm x 52 mm trial liner. Next, attention was turned back the femur, again positioning the leg for exposure of the proximal femur. Next, I rasped using the size 2, working through the size 5 graft. The size 5 graft fit appropriately. Next, I trialed a high offset neck size +5, followed by a size 8.5. The size 8.5 seemed to fit appropriately with appropriate soft tissue tension and stability with internal rotation and flexion as well as external rotation. Next, once this was accomplished, the hip was again dislocated and the trial components were removed. I retained the trial acetabular liner and accessed the anterior and posterior inferior osteophytes. These were removed using Leksell and an osteotome. Next, once this was accomplished, the trial acetabular liner was removed. The apex hole eliminator was placed and the non trial 36 x 52 mm AltrX liner was installed and tamped into place with nylon impactor. Next, attention was turned back to the femur. Mr. Soriano positioned the hip and I installed the non trial high offset 5 femoral component. Next, once this was accomplished, we cleaned the trunnion and I installed the 36 mm non trial ceramic femoral head. Next, the hip was then reduced. Next, I placed the capital tranexamic solution (TXA) solution within the hip. It was allowed stand for 1 minute to provide for hemostasis. Next, once this was accomplished, capsule and minimus tissues were reapproximated with interrupted stitch and the abductor mechanism was reapproximated to the cuff tissue on the greater trochanter using interrupted stitch and also using the stay suture for retraction. The stay suture then removed. The vastus lateralis reapproximated with running stitch. The lateral fascia was reapproximated with interrupted stitch as well as a running Stratafix stitch. Please note, pulse lavage irrigation had been accomplished. Next, Dean's fascia as well as deep dermis was reapproximated with interrupted stitch and a Prineo dressing was then placed on skin. Next, also prior to closure, we did instill the Exparel local anesthetic solution. This was a mixture of saline 20 mL, Marcaine 20 mL and Exparel 20 mL. It was instilled in the soft tissues circumferentially around the wound carefully by myself. Next, again, the dermis was reapproximated with interrupted stitch. Prineo dressing was applied. Next, the Vel table was disassembled. The patient was moved to the supine position with a pillow between the knees to protect the hip and abductor mechanism and then he was moved to the hospital bed in good condition moving all four extremities. Mr. Soriano was present and participated in the entirety of the case in the capacity of perioperative assistant. The patient was moved to the recovery room in good condition. For further details, please refer to the medical record.
[2017-05-10 07:16] LABS: MEAN CORPUSCULAR HEMOGLOBIN 29.7 pg (27.0-33.0); MEAN CORPUSCULAR HGB CONC 33.9 g/dl (32.0-36.5); MEAN CORPUSCULAR VOLUME 87.8 fl (80.0-96.0); PLATELET COUNT, AUTOMATED 161 10^3/uL (150-450); RED CELL DISTRIBUTION WIDTH 12.9 % (11.5-14.5); WHITE BLOOD COUNT 6.3 10^3/uL (4.0-10.0)
[2017-05-10 07:27] LABS: INR 1.21
[2017-05-10] MEDS ORDERED: SPIRONOLACTONE 12.5MG PER 1/2 TABLET PO SCH (09:00)
[2017-05-10] MEDS ORDERED: CelecoXIB (CeleBREX) 100 MG CAP PO SCH (09:00)
[2017-05-10] MEDS ORDERED: MIRALAX *UNIT DOSE* 17GM PACKET PO SCH (09:00)
[2017-05-10] MEDS ORDERED: MOM 30ML SUSPENSION UDC PO SCH (09:00)
[2017-05-10] MEDS ORDERED: SENOKOT S TAB PO SCH (09:00)
[2017-05-10] MEDS ORDERED: LISINOPRIL 40 MG TAB PO SCH (09:00)
[2017-05-10] MEDS ORDERED: hydroCHLOROthiazide 25 MG TAB PO SCH (09:00)
[2017-05-10] MEDS ORDERED: PERC5TAB12 PO (09:22)
[2017-05-10] MEDS ORDERED: COUM2.5T17 PO (09:22)
[2017-05-10 10:00] VITALS: BP 126/85
--- NOTE | 2017-05-10 10:31 | REP ---
Clinical: Status post arthroplasty. Technique: AP and cross-table lateral views. Findings: The patient is status post left hip replacement with normal positioning and appearance to the femoral and acetabular components. Overlying postsurgical changes appreciated. Impression: Satisfactory left hip replacement radiographs. Signed by Michael Jacques MD 05/10/2017 10:22 A
[2017-05-10 14:00] VITALS: BP 126/86
[2017-05-10] MEDS ORDERED: WARFARIN SOD 5 MG TAB PO ONE (17:00)
--- NOTE | 2017-05-12 16:38 | DSES ---
DATE OF ADMISSION: 05/09/2017 DATE OF DISCHARGE: 05/10/2017 CHIEF COMPLAINT: Left hip osteoarthritis (OA). DISCHARGE DIAGNOSIS: Left hip osteoarthritis, status post left total hip arthroplasty. HISTORY: This is a 61-year-old male with progressively worsening left hip pain and stiffness. He had failed to improve with conservative treatment and elected for surgery for his continued symptoms. PROCEDURE PERFORMED: Left total hip arthroplasty. HOSPITAL COURSE: Was without complications. The patient was up with physical therapy per the protocol and his pain was controlled. On the day of discharge, the patient was doing well, weightbearing as tolerated. Will use adjusted-dose Coumadin and thromboembolism deterrent stockings (TEDs) for 30 days postoperatively for deep venous thrombosis (DVT) prophylaxis and he will use oral medications for pain control. The patient will follow up in the office in two weeks for staple removal.
== END 2017-05-10 15:20 | disposition home health service (06) | DRG 301 ==
LOC: M OR 06:35 → M MS5PR 13:00
PROVIDERS: ADMIT Orthopaedic Surgery; ATTEND Orthopaedic Surgery
PROC: 0SRB04A Replacement of Left Hip Joint with Ceramic on Polyethylene Synthetic Substitute, Uncemented, Open Approach (ICD-10-PCS; principal; 2017-05-09 08:30)
DX: M16.12 Unilateral primary osteoarthritis, left hip (principal); I10 Essential (primary) hypertension; K21.9 Gastro-esophageal reflux disease without esophagitis; J45.909 Unspecified asthma, uncomplicated; M81.0 Age-related osteoporosis without current pathological fracture; Z79.899 Other long term (current) drug therapy

== ENCOUNTER → 2017-05-15 | Outpatient (REF) | payer BC ==
[~2017-05-15] MED LIST changes: +COUM1TAB17 PO; +COUM2.5T17 PO; +PERC5TAB12 PO
[2017-05-15 15:46] LABS: INR 1.58
== END ==
LOC: M SHH 14:57
PROVIDERS: ATTEND Nurse Practitioner Family
DX: Z51.81 Encounter for therapeutic drug level monitoring (principal); Z79.01 Long term (current) use of anticoagulants

== ENCOUNTER → 2017-05-18 | Outpatient (REF) | payer BC ==
[2017-05-18 14:02] LABS: INR 1.82
== END ==
LOC: M SHH 13:32
PROVIDERS: ATTEND Nurse Practitioner Family
DX: Z51.81 Encounter for therapeutic drug level monitoring (principal); Z79.01 Long term (current) use of anticoagulants

== ENCOUNTER → 2017-05-22 | Outpatient (REF) | payer BC ==
[2017-05-22 15:28] LABS: INR 2.48
== END ==
LOC: M SHH 14:59
PROVIDERS: ATTEND Nurse Practitioner Family
DX: Z79.01 Long term (current) use of anticoagulants (principal)

== ENCOUNTER → 2017-05-25 | Outpatient (REF) | payer BC ==
[2017-05-25 14:32] LABS: INR 2.6
== END ==
LOC: M SHH 14:08
PROVIDERS: ATTEND Nurse Practitioner Family
DX: Z79.01 Long term (current) use of anticoagulants (principal)

== ENCOUNTER → 2017-05-29 | Outpatient (REF) | payer BC ==
[2017-05-29 13:36] LABS: INR 2.03
== END ==
LOC: M SHH 13:03
PROVIDERS: ATTEND Nurse Practitioner Family
DX: Z79.01 Long term (current) use of anticoagulants (principal)

== ENCOUNTER → 2017-06-01 | Outpatient (REF) | payer BC ==
[2017-06-01 15:22] LABS: INR 1.64
== END ==
LOC: M LAB REF 14:57 → M SHH 14:58
PROVIDERS: ATTEND Nurse Practitioner Family
DX: Z79.01 Long term (current) use of anticoagulants (principal)

== ENCOUNTER → 2017-06-06 | Outpatient (REF) | payer BC ==
[2017-06-06 14:23] LABS: INR 1.73
== END ==
LOC: M SHH 13:46
PROVIDERS: ATTEND Nurse Practitioner Family
DX: Z79.01 Long term (current) use of anticoagulants (principal)

== ENCOUNTER → 2017-10-19 | Outpatient (REF) | payer BC ==
[2017-10-19 12:46] LABS: ALBUMIN 3.2 GM/DL (3.2-5.2); ALBUMIN/GLOBULIN RATIO 0.89 (1.00-1.93); ALKALINE PHOSPHATASE 68 U/L (45-117); ALT/SGPT 21 U/L (12-78); ANION GAP 7 MEQ/L (8-16); AST/SGOT 14 U/L (7-37); BILIRUBIN,TOTAL 0.9 MG/DL (0.2-1.0); BLOOD UREA NITROGEN 17 MG/DL (7-18); CALCIUM LEVEL 8.7 MG/DL (8.8-10.2); CARBON DIOXIDE LEVEL 31 MEQ/L (21-32); CHLORIDE LEVEL 103 MEQ/L (98-107); CHOLESTEROL LEVEL 175 MG/DL (<200); CHOLESTEROL RISK RATIO 3.888 (<5); CREATININE FOR GFR 1.25 MG/DL (0.70-1.30); GLOMERULAR FILTRATION RATE > 60.0 (>49); GLUCOSE, FASTING 109 MG/DL (70-100); HDL CHOLESTEROL 45 MG/DL (>40); LDL CHOLESTEROL 109.6 MG/DL (<100); NON-HDL-C 130 MG/DL; POTASSIUM SERUM 3.8 MEQ/L (3.5-5.1); PROSTATIC SPECIFIC AG MONITOR 1.37 NG/ML (< 4.0); SODIUM LEVEL 141 MEQ/L (136-145); TOTAL PROTEIN 6.8 GM/DL (6.4-8.2); TRIGLYCERIDES LEVEL 102 MG/DL (<150)
[2017-10-19 13:32] LABS: ESTIMATED AVERAGE GLUCOSE 120 MG/DL (60-110); HEMOGLOBIN A1c 5.8 %
== END ==
LOC: M LABDRAWC 11:24
DX: Z00.00 Encounter for general adult medical examination without abnormal findings (principal); I10 Essential (primary) hypertension; E78.2 Mixed hyperlipidemia; R73.01 Impaired fasting glucose; R97.20 Elevated prostate specific antigen [PSA]
CPT/HCPCS: 80053

== ENCOUNTER 2018-02-03 01:21 | Emergency (ER) | payer BC ==
[2018-02-03] MEDS ORDERED: DIGOXIN INJ 0.5 MG/2 ML AMP (J1160) As Ordered (01:39)
[2018-02-03] MEDS: DIGOXIN INJ 0.5 MG/2 ML AMP (J1160) IV (01:42)
[2018-02-03] MEDS: METOPROLOL 5 MG/5 ML VIAL IV (02:11)
[2018-02-03 02:19] LABS: BASO # 0.1 10^3/uL (0.0-0.2); BASO % 0.7 % (0.0-1.0); EOS # 0.1 10^3/uL (0.0-0.50); EOS % 1.4 % (0.0-3.0); HEMATOCRIT 49.8 % (42.0-52.0); HEMOGLOBIN 17.1 g/dl (13.5-17.5); IMMATURE GRANULOCYTE % 0.3 % (0-3.0); LYMPH # 1.8 10^3/uL (1.5-4.5); LYMPH % 19.8 % (24.0-44.0); MEAN CORPUSCULAR HEMOGLOBIN 30.3 pg (27.0-33.0); MEAN CORPUSCULAR HGB CONC 34.3 g/dl (32.0-36.5); MEAN CORPUSCULAR VOLUME 88.1 fl (80.0-96.0); MONO # 0.7 10^3/uL (0.0-0.8); MONO % 7.7 % (0.0-5.0); NEUTROPHILS # 6.4 10^3/uL (1.8-7.7); NEUTROPHILS % 70.1 % (36.0-66.0); PLATELET COUNT, AUTOMATED 202 10^3/uL (150-450); RED BLOOD COUNT 5.65 10^6/uL (4.30-6.10); RED CELL DISTRIBUTION WIDTH 13.2 % (11.5-14.5); WHITE BLOOD COUNT 9.1 10^3/uL (4.0-10.0)
[2018-02-03 02:32] LABS: ALBUMIN 3.3 GM/DL (3.2-5.2); ALBUMIN/GLOBULIN RATIO 0.85 (1.00-1.93); ALKALINE PHOSPHATASE 89 U/L (45-117); ALT/SGPT 21 U/L (12-78); ANION GAP 11 MEQ/L (8-16); AST/SGOT 12 U/L (7-37); BILIRUBIN,DIRECT 0.3 MG/DL (0.0-0.2); BILIRUBIN,TOTAL 1.2 MG/DL (0.2-1.0); BLOOD UREA NITROGEN 19 MG/DL (7-18); CALCIUM LEVEL 8.8 MG/DL (8.8-10.2); CARBON DIOXIDE LEVEL 28 MEQ/L (21-32); CHLORIDE LEVEL 101 MEQ/L (98-107); CPK CREATINE PHOSPHOKINASE 66 U/L (39-308); CREATININE FOR GFR 1.29 MG/DL (0.70-1.30); FREE THYROXINE INDEX 3.6 % (1.4-3.8); GLOMERULAR FILTRATION RATE > 60.0 (>49); GLUCOSE, FASTING 128 MG/DL (70-100); LIPASE 125 U/L (73-393); POTASSIUM SERUM 3.2 MEQ/L (3.5-5.1); SODIUM LEVEL 140 MEQ/L (136-145); T UPTAKE 38 % (33-40); THYROXINE (T4) 9.4 UG/DL (4.5-12.0); TOTAL PROTEIN 7.2 GM/DL (6.4-8.2); TROPONIN I < 0.02 NG/ML (< 0.10)
[2018-02-03 02:38] LABS: CK-MB VALUE MASS < 1.0 NG/ML (<3.6); MB/CK RELATIVE INDEX 1.51 (< OR =4)
[2018-02-03] MEDS ORDERED: METOPROLOL TART 25 MG TABLET As Ordered (02:38)
[2018-02-03] MEDS: METOPROLOL TART 25 MG TABLET PO ×2 (02:42→03:05)
[2018-02-03] MEDS ORDERED: ISOVUE-370 76% 100ML VIAL (Q9967) As Ordered (03:06)
[2018-02-03] MEDS: NS 500 ML IV (03:06)
[2018-02-03] MEDS: MORPHINE 2 MG/ML 1ML SYRINGE (J2270) IV (04:21)
[2018-02-03] MEDS: dexameTHASONE 20 MG/5 ML VIAL (J1100) IV (05:04)
[2018-02-03] MEDS: KETOROLAC 30 MG/ML VIAL (J1885) IV (05:04)
[2018-02-03] MEDS: APIXABAN 5 MG TAB (ELIQUIS) PO (05:05)
[2018-02-03] MEDS: POTASSIUM CHLORIDE 10 MEQ SR TABLET PO (05:33)
[2018-02-03] MEDS ORDERED: cefTRIAXone SOD 1 GM in D5W MINI-BAG PLUS 50 ML IV (06:00)
== END 2018-02-03 06:56 | disposition home or self-care (01) ==
LOC: M ED 01:21
DX: I48.91 Unspecified atrial fibrillation (principal); R91.8 Other nonspecific abnormal finding of lung field; I10 Essential (primary) hypertension; K21.9 Gastro-esophageal reflux disease without esophagitis; J45.909 Unspecified asthma, uncomplicated; Z79.899 Other long term (current) drug therapy
CPT/HCPCS: J1100

== ENCOUNTER → 2018-10-23 | Outpatient (CLI) | payer BC ==
[~2018-10-23] MED LIST changes: +ATEN25TA PO; +ELIQ5TAB PO; +HYDR-3715 PO; -NORCOTAB PO; +PRED20TA PO; +SPIR-10 PO; -SPIR25TA2 PO; +ZITHTAB PO
[2018-10-23 09:40] LABS: ALBUMIN 3.5 GM/DL (3.2-5.2); BILIRUBIN,TOTAL 1.2 MG/DL (0.2-1.0); CALCIUM LEVEL 9.3 MG/DL (8.8-10.2); CREATININE FOR GFR 1.55 MG/DL (0.70-1.30); GLOMERULAR FILTRATION RATE 48.6 (>49); POTASSIUM SERUM 4.1 MEQ/L (3.5-5.1); TOTAL PROTEIN 7.2 GM/DL (6.4-8.2)
[2018-10-23 13:22] LABS: HEMOGLOBIN A1c 5.7 %
== END ==
LOC: M WUC 08:06
PROVIDERS: ATTEND Physician Assistant
DX: I10 Essential (primary) hypertension (principal)

== ENCOUNTER → 2019-01-23 | Outpatient (REF) | payer BC ==
[~2019-01-23] MED LIST changes: -LISI20TA PO; +LISI20TA18 PO
[2019-01-23 14:50] LABS: CALCIUM LEVEL 9.2 MG/DL (8.8-10.2); CREATININE FOR GFR 1.4 MG/DL (0.70-1.30); GLOMERULAR FILTRATION RATE 54.7 (>49); POTASSIUM SERUM 3.9 MEQ/L (3.5-5.1)
== END ==
LOC: M LABDRAWC 11:21
PROVIDERS: ATTEND Physician Assistant
DX: I10 Essential (primary) hypertension (principal)

== ENCOUNTER → 2019-07-17 | Outpatient (REF) | payer BC ==
[~2019-07-17] MED LIST changes: -LISI20TA18 PO; +LISI20TA19 PO
[2019-07-17 12:32] LABS: HEMOGLOBIN A1c 5.5 %
[2019-07-17 12:47] LABS: ALT/SGPT 37 U/L (12-78); BILIRUBIN,TOTAL 1.3 MG/DL (0.2-1.0); BLOOD UREA NITROGEN 17 MG/DL (7-18); CALCIUM LEVEL 8.9 MG/DL (8.8-10.2); CARBON DIOXIDE LEVEL 33 MEQ/L (21-32); CHLORIDE LEVEL 102 MEQ/L (98-107); CREATININE FOR GFR 1.23 MG/DL (0.70-1.30); GLOMERULAR FILTRATION RATE > 60.0 (>49); GLUCOSE, FASTING 90 MG/DL (70-100); POTASSIUM SERUM 3.2 MEQ/L (3.5-5.1); SODIUM LEVEL 141 MEQ/L (136-145); TRIGLYCERIDES LEVEL 85 MG/DL (<150)
[2019-07-17 12:48] LABS: ALBUMIN 3.6 GM/DL (3.2-5.2); CHOLESTEROL LEVEL 190 MG/DL (<200); CHOLESTEROL RISK RATIO 3.275 (<5); HDL CHOLESTEROL 58 MG/DL (>40); LDL CHOLESTEROL 115 MG/DL (<100); NON-HDL-C 132 MG/DL; TOTAL PROTEIN 7.1 GM/DL (6.4-8.2)
== END ==
LOC: M LABDRAWC 11:29
PROVIDERS: ATTEND Physician Assistant
DX: E78.2 Mixed hyperlipidemia (principal); I10 Essential (primary) hypertension; R73.01 Impaired fasting glucose

== ENCOUNTER → 2020-11-03 | Outpatient (CLI) | payer BC ==
[~2020-11-03] MED LIST changes: -LISI20TA19 PO; +LISI20TA35 PO
[2020-11-03 10:51] LABS: BASO # 0.1 10^3/uL (0.0-0.2); EOS # 0.2 10^3/uL (0.0-0.5); HEMATOCRIT 47.7 % (42.0-52.0); HEMOGLOBIN 16.2 g/dl (13.5-17.5); LYMPH # 1.2 10^3/uL (1.5-5.0); LYMPH % 25.5 % (24.0-44.0); MEAN CORPUSCULAR VOLUME 88.3 fl (80.0-96.0); MONO # 0.4 10^3/uL (0.0-0.8); MONO % 7.7 % (2.0-8.0); NEUTROPHILS # 2.9 10^3/uL (1.5-8.5); NEUTROPHILS % 61.2 % (36.0-66.0); PLATELET COUNT, AUTOMATED 206 10^3/uL (150-450); WHITE BLOOD COUNT 4.8 10^3/uL (4.0-10.0)
[2020-11-03 11:06] LABS: HEMOGLOBIN A1c 5.4 %
[2020-11-03 11:15] LABS: ALBUMIN 3.2 GM/DL (3.2-5.2); ALT/SGPT 25 U/L (12-78); BILIRUBIN,TOTAL 1.3 MG/DL (0.2-1.0); BLOOD UREA NITROGEN 26 MG/DL (7-18); CALCIUM LEVEL 9.1 MG/DL (8.8-10.2); CARBON DIOXIDE LEVEL 33 MEQ/L (21-32); CHLORIDE LEVEL 102 MEQ/L (98-107); CHOLESTEROL LEVEL 183 MG/DL (<200); CHOLESTEROL RISK RATIO 4.255 (<5); CREATININE FOR GFR 1.16 MG/DL (0.70-1.30); GLOMERULAR FILTRATION RATE > 60.0 (>49); GLUCOSE, FASTING 103 MG/DL (70-100); HDL CHOLESTEROL 43 MG/DL (>40); LDL CHOLESTEROL 121 MG/DL (<100); NON-HDL-C 140 MG/DL; POTASSIUM SERUM 3.1 MEQ/L (3.5-5.1); SODIUM LEVEL 142 MEQ/L (136-145); TRIGLYCERIDES LEVEL 97 MG/DL (<150)
== END ==
LOC: M WUC 08:03
PROVIDERS: ATTEND Nurse Practitioner Family
DX: I10 Essential (primary) hypertension (principal); R73.01 Impaired fasting glucose; E78.2 Mixed hyperlipidemia

== ENCOUNTER → 2020-12-02 | Outpatient (REF) | payer BC ==
[2020-12-03 12:25] LABS: BLOOD UREA NITROGEN 19 MG/DL (7-18); CALCIUM LEVEL 8.7 MG/DL (8.8-10.2); CARBON DIOXIDE LEVEL 33 MEQ/L (21-32); CHLORIDE LEVEL 102 MEQ/L (98-107); CREATININE FOR GFR 1.22 MG/DL (0.70-1.30); GLOMERULAR FILTRATION RATE > 60.0 (>49); GLUCOSE, FASTING 127 MG/DL (70-100); POTASSIUM SERUM 3.9 MEQ/L (3.5-5.1); SODIUM LEVEL 138 MEQ/L (136-145)
== END ==
LOC: M LABDRAWC 11:07
PROVIDERS: ATTEND Nurse Practitioner Family
DX: E87.6 Hypokalemia (principal)